=== PATIENT | female | born 1990 | race African-American/Black ===

== ENCOUNTER 2017-08-26 21:15 | Observation (INO) | payer BC, MEDICAID ==
[~2017-08-26] VITALS: Ht 167.6 cm; Wt 72.6 kg
[2017-08-26] MEDS ORDERED: PNV1TABL76 PO (22:13)
[2017-08-26 22:29] LABS: CLARITY URINE CLEAR (CLEAR); COLOR URINE YELLOW (YELLOW); KETONES URINE NEGATIVE (NEGATIVE); LEUKOCYTE ESTERASE URINE 1+ (NEGATIVE); NITRITE URINE NEGATIVE (NEGATIVE); OCCULT BLOOD URINE 1+ (NEGATIVE); PH URINE 6.5 (4.5-8.0); PROTEIN URINE NEGATIVE (NEGATIVE); SPECIFIC GRAVITY URINE 1.006 (1.005-1.030); UROBILINOGEN URINE 0.2 E.U./dL (0.2-1.0)
[2017-08-26] MEDS ORDERED: LACTATED RINGERS 1,000 ML IV SCH (23:39)
[2017-08-26] MEDS ORDERED: CEFAZOLIN SODIUM 1000MG/VIAL IM ONE (23:45)
[2017-08-27] MEDS ORDERED: CEFAZOLIN 1000MG PREMIX 50 ML IV NR (00:30)
== END 2017-08-27 09:20 | disposition home or self-care (01) ==
LOC: L&D 21:15
PROVIDERS: ADMIT Obstetrics & Gynecology; ATTEND Obstetrics & Gynecology
DX: O46.92 Antepartum hemorrhage, unspecified, second trimester (principal); Z3A.20 20 weeks gestation of pregnancy
CPT/HCPCS: 76805; 81003; 96365; 99281; G0378; J0690; J7120; 96360; 96361